=== PATIENT | female | born 1940 | race Caucasian/White ===

== ENCOUNTER → 2017-02-14 | Day surgery (SDC) | payer OTHER, MEDICARE ==
[~2017-02-14] VITALS: Ht 167.6 cm; Wt 55.8 kg
[~2017-02-14] MED LIST: ADVAIR 250-501 EACH INH; ALBUTEROL2.5 MG/0.1 INH; BROVANA15 MCG/2 M INH; CALCIUM 500 +1 EAC5 PO; CALCIUM500 M1; DALIRESP500 MCG PO; DIAZEPAM2 MG PO; LEVOTHYROXIN0.088 MG; LEVOXYL100 MCG PO; LORAZEPAM 0.50.5 MG PO; LOTEMAX5 GM OPHTHALMIC; MUCINEX600 MG PO; PREDNISONE 10 M10 M1; PROLENSA1.6 ML OPHTHALMIC; PROTONIX 20 MG20 M1 PO; PULMICORT0.5 MG/22 INH; SERTRALINE HCL1 GM; SIMVASTATIN80 MG PO; SPIRIVA18 MCG INH; VENTOLIN HFA 1818 GM INH; VITAMIN D2000 UNIT PO; ZOCOR40 MG PO; ZOLOFT 50 MG TA50 M1 PO; ZOLOFT100 MG PO
--- NOTE | ~2017-02-14 | O ---
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 PROCEDURE: Bilateral lower lid ectropion repair with transconjunctival lower lid and cheek lift. SURGEON: Keo Garcia M.D. DELIVERY AGENT: None. ANESTHESIA: MAC. COMPLICATIONS: None. INDICATIONS FOR SURGERY: This pleasant 76-year-old woman presents with bilateral lower lid ectropion with lid retraction, lagophthalmos, and keratopathy. She presents today for a bilateral lower lid ectropion repair, combined with a transconjunctival lower lid and cheek lift. Informed consent was obtained to include but not limited to potential risk for loss of vision, bleeding, infection, failure to improve the problem, and the potential need for further surgery or treatment. DESCRIPTION OF PROCEDURE: The patient was taken to the operating room where 2% Xylocaine with epinephrine mixed with equal parts of 0.75% Marcaine with Wydase was administered transcutaneously and transconjunctivally to each lower lid, lateral canthus, cheek, and infratemporal fossa. The patient was subsequently prepped and draped in the usual sterile fashion. Attention was first turned to the left side. The left lateral canthus was then clamped with a Orozco clamp. A sharp canthotomy and cantholysis was subsequently performed. A tarsal strip was then prepared laterally removing the lash bearing portion of the redundant lid margin and the redundant tarsal plate. Hemostasis was then re-achieved. The transconjunctival incision was made below the inferior border of the tarsal [address] [address] OPERATIVE REPORT Name: OSCAR PRICE Room #: REG [facility] [place]..#: [id number] Admission: 02/14/17 Attend Phys: Keo Garcia MD Discharge: Date of : 36 Report #: [id number]. The dissection was then carried out in the premalar tissues with sharp techniques. Hemostasis was re-achieved. The lower lid and cheek tissues were then re-elevated and suspended with interrupted 5-0 Prolene sutures. Attention was then turned to completion of the ectropion repair. The tarsal strip was secured to the internal portion of the lateral orbital tubercle with 2 interrupted 5-0 Prolene sutures. The subcutaneous structures and the skin were then advanced and closed with interrupted 6-0 plain gut sutures. Attention was then turned to the right side, where the same procedures were performed. The wounds were then cleaned and dressed with erythromycin ophthalmic ointment. The patient was subsequently transported to the recovery area having tolerated the procedure well with a symmetrical procedure is being undertaken. Thank you very much. Supportive dictations follow. By: 1509 1722 Keo Garcia MD /nt
== END | disposition home or self-care (01) ==
LOC: OR 05:19
DX: H02.102 Unspecified ectropion of right lower eyelid (principal); H02.105 Unspecified ectropion of left lower eyelid; H02.535 Eyelid retraction left lower eyelid; H02.532 Eyelid retraction right lower eyelid; H02.205 Unspecified lagophthalmos left lower eyelid; H02.202 Unspecified lagophthalmos right lower eyelid; J44.9 Chronic obstructive pulmonary disease, unspecified; F41.9 Anxiety disorder, unspecified; H18.9 Unspecified disorder of cornea; K21.9 Gastro-esophageal reflux disease without esophagitis; Z90.49 Acquired absence of other specified parts of digestive tract; Z90.710 Acquired absence of both cervix and uterus; Z98.890 Other specified postprocedural states; Z98.41 Cataract extraction status, right eye; Z98.42 Cataract extraction status, left eye; Z87.891 Personal history of nicotine dependence
CPT/HCPCS: 50010; 50101; 50386; 50398; 51636; 56527; 56531; 62110; 62850; 70005

== ENCOUNTER 2017-04-26 10:16 | Inpatient (IN) | payer OTHER, MEDICARE ==
[2017-04-26] VITALS (31 sets, daily range): BP systolic 76–153; BP diastolic 47–74
[~2017-04-26] VITALS: Ht 152.4 cm; Wt 59.0 kg
--- NOTE | ~2017-04-26 | 2DMMODE ---
[place] [address] [facility] [place] [address] 2 D/M-MODE ECHOCARDIOGRAM Name: PRICEOSCAR KATHRYN Room #: 237-P [facility] IN M.R.#: [id number] Admission: 04/26/17 Attend Phys: Edd Ugarte, Discharge: Date of : 36 Date of Service: 04/28/17 1221 Report #: [id number] THIS REPORT FOR: //name// APPROVED REPORT Study performed: 04/28/2017 10:01:35 EXAM: Comprehensive 2D, Doppler, and color-flow Echocardiogram Patient Location: Bedside Room #: 237 Other Information Study Quality: Technically Difficult Indications COPD Pulmonary Hypertension 2D Dimensions RVDd: 39.92 mm LVEF(%): 78.24 (>50%) IVSd: 9.40 (7-11mm) LVOT Diam: 18.06 (18-24mm) LVDd: 36.59 mm PWd: 9.03 (7-11mm) Ascending Ao: 22.86 (22-36mm) LVDs: 19.74 (25-40mm) Aortic Root: 29.87 mm IVC: 24.00 mm Stern's LVEF: 78.24 % Volumes Left Atrial Volume (Systole) Single Plane 4CH: 21.46 mL Single Plane 2CH: 18.97 mL LA ESV Index: 26.00 mL/m2 Aortic Valve AoV Peak Petros.: 1.55 m/s AO Peak Gr.: 9.60 mmHg LVOT Max P.98 mmHg LVOT Max V: 1.12 m/s ONELIA Vmax: 1.84 cm2 Mitral Valve MV Decel. Time: 132.04 ms MV E Max Petros.: 1.25 m/s IVRT: 76.12 ms Pulmonary Valve [facility] [address] [address] 2 D/M-MODE ECHOCARDIOGRAM Name: OSCAR PRICE Room #: [address] [place] [address] IN M.R.#: [id number] Admission: 04/26/17 Attend Phys: Edd Ugarte, Discharge: Date of : 36 Date of Service: 04/28/17 1221 Report #: [id number] PV Peak Petros.: 1.42 m/s PV Peak Gr.: 8.04 mmHg Tricuspid Valve RAP Estimate: 15.00 mmHg Left Ventricle The left ventricle is normal size. There is normal left ventricular wall thickness. Left ventricular systolic function is hyperdynamic. LVEF is >70%. This study is not technically sufficient to allow evaluation of the LV diastolic function due to high heart rate. Right Ventricle Right ventricle is dilated. The right ventricular systolic function is normal. Atria The left atrium size is normal. The right atrium size is normal. Aortic Valve The aortic valve is normal in structure but poorly visualized. No aortic regurgitation is present. There is no aortic valvular stenosis. Mitral Valve The mitral valve is normal in structure. There is no mitral valve regurgitation noted. No evidence of mitral valve stenosis. Tricuspid Valve The tricuspid valve is normal in structure. Trace tricuspid regurgitation. Pulmonic Valve The pulmonary valve is normal in structure. Trace to mild pulmonic regurgitation. Great Vessels The aortic root is normal in size. IVC is dilated and collapses <50% with inspiration. <Conclusion> The left ventricle is normal size. LVEF is >70%. Right ventricle is dilated. The aortic valve is normal in structure but poorly visualized. [facility] [address] [place] [address] 2 D/M-MODE ECHOCARDIOGRAM Name: ALBERTOSCAR KATHRYN Room #: 237-P [facility] IN .R.#: [id number] Admission: 04/26/17 Attend Phys: Edd Ugarte, Discharge: Date of : 36 Date of Service: 04/28/17 1221 Report #: [id number] The mitral valve is normal in structure. The tricuspid valve is normal in structure. Trace tricuspid regurgitation. The pulmonary valve is normal in structure. Trace to mild pulmonic regurgitation. <ELECTRONICALLY SIGNED> By: Cheikh Duncan MD 04/28/17 1221 1221 1221 Cheikh Duncan MD /INF
--- NOTE | ~2017-04-26 | EKG ---
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
--- NOTE | ~2017-04-26 | CNG ---
[facility] [place] [address] CYTO-NONGYN REPORT PROCEDURE Name: OSCAR RAMSEY Room #: 237-P DIS IN M.R.#: [id number] Admission: 04/26/17 Date of : 36 Discharge: 05/01/17 Report #: [id number] Path Case #: [id number] CYTOPATHOLOGY REPORT COLLECTION DATE: 04/29/2017 RECEIVED DATE: 04/29/2017 SUBMITTING PHYS: Dr. Candi Palacio OTHER PHYS: Dr. Gab Ugarte CLINICAL HISTORY: COPD; Excaerbation SPECIMEN(S) RECEIVED: A.Sputum * * * * * * * * * * * * FINAL DIAGNOSIS: A. Sputum: Atypical cells identified. -Occasional clusters of cells with reactive atypia identified amongst alveolar macrophages, rare bronchial epithelial cells and acute and chronic inflammation. PATHOLOGIST: Nerissa Alvarez M.D. REPORT ELECTRONICALLY SIGNED BY: Nerissa Alvarez M.D. DATE/TIME: 05/02/2017 11:08 * * * * * * * * * * * * GROSS PATHOLOGY: A. Sputum: The specimen is submitted unfixed, labeled "Oscar Ramsey". Received by the Cytology Department is two mL of cloudy colorless fluid. One ThinPrep slide was prepared. (mm 04.29.2017) TRAINING PERSONNEL SUPERVISOR(S): ELO Pablo([facility]) INITIAL CPT CODE(S): A; 62681 Professional services performed by [facility] at [facility] [address], [place] [address] Technical services performed by [facility] at [address] [place] [address]., [address], [place] [address]. [facility] [address] [place] [address], [address] [place] [address] [facility] [address] [place] [address] CYTO-NONGYN REPORT PROCEDURE Name: OSCAR RAMSEY Room #: 237-P DIS IN M.R.#: [id number] Admission: 04/26/17 Date of : 36 Discharge: 05/01/17 Report #: [id number] Path Case #: [id number] PHONE: [phone] DIRECTOR: Jeancarlos Gustafson M.D. * * * END OF REPORT * * *
--- NOTE | ~2017-04-26 | HC ---
[facility] [place] [address] CONSULTATION Name: OSCAR PRICE Room #: 237-P [facility] IN M.R.#: [id number] Admission: 04/26/17 Attend Phys: Edd Ugarte MD Discharge: 05/01/17 Date of : 36 Report #: [id number] THIS REPORT FOR: //name// CC: Dr. Castro Ugarte REASON FOR CONSULTATION: Hypercapnic respiratory failure, 35 minutes critical care time. IMPRESSION: 1. Acute respiratory failure likely secondary to exacerbated chronic obstructive pulmonary disease. 2. Right bundle-branch block. 3. Leukocytosis. PLAN: 1. We will check a D-dimer. If this is positive, we will do a CT PE protocol. 2. We will keep sedated and adjust ventilator. 3. Aerosol, antibiotics and corticosteroids. We will check sputum cultures. We will do usual DVT and ulcer prophylaxis. Because of her IODINE allergy, we will do a perfusion lung scan. HISTORY OF PRESENT ILLNESS: A 76-year-old female presented to the ER with respiratory distress and nausea. PAST MEDICAL AND SURGICAL HISTORY: Surgeries include partial thyroidectomy, appendectomy, tubal ligation, hemorrhoidectomy, hysterectomy, cataract surgery. MEDICATIONS: Per chart include Spiriva, Levoxyl, sertraline, simvastatin, Brovana, Pulmicort, Ventolin. ALLERGIES: SULFA, CODEINE AND IODINE. SOCIAL HISTORY: Positive tobacco in the past and ETOH. REVIEW OF SYSTEMS: Unobtainable; however, history of COPD, hemorrhoid, anxiety. PHYSICAL EXAMINATION: VITAL SIGNS: Temperature 96.9, pulse 106, respiratory rate 17, and blood pressure 100/60. EYES: Negative icterus. NECK: Trachea midline. Endotracheal tube in place. LUNGS: Mild wheeze. HEART: tachy. ABDOMEN: Bowel sounds present. [facility] [address] [place] [address] CONSULTATION Name: OSCAR PRICE Room #: 237-P [facility] IN [facility]#: [id number] Admission: 04/26/17 Attend Phys: Edd Ugarte MD Discharge: 05/01/17 Date of : 36 Report #: [id number] EXTREMITIES: No cyanosis or edema. LABORATORY DATA: Initial ABG showed pH 7.21, pCO2 of 90, pO2 of 174 on 8 liters, lactate 0.55. On BiPAP, rate of 14, pressure , PEEP of 6, pH 7.183, pCO2 of 96, pO2 of 171. On ventilator, pH 7.216, pCO2 of 77, pO2 of 136, 40%, rate 14, tidal volume 450, PEEP of 6, peak pressure was 24. DICTATION ENDS HERE. <ELECTRONICALLY SIGNED> By: Candi Palacio MD 05/08/17 0931 1618 0755 Candi Palacio MD /agtito
[2017-04-26 10:31] LABS: ABG SAMPLE TYPE ARTERIAL; BE(vivo) 4.1 mmol/L (-2 to +3); HCO3 35.1 mmol/L (22.0-26.0); LACTATE 0.55 mmol/L (0.5-2.0); O2(CT) 19.4 mL/dL (15.0-23.0); O2Hb 98.1 % (92.0-98.0); PO2 173.8 mmHg (80.0-100.0); sO2 98.8 % (92.0-98.0); tCO2 37.9 mmol/L (24.0-30.0)
[2017-04-26 10:32] LABS: PCO2 89.8 mmHg (35.0-45.0); STICK SITE R.RADIAL
[2017-04-26 10:55] LABS: MCH 30.8 pg (26.0-34.0); MCHC 32.5 g/dL (28.0-37.0); MCV 94.8 fL (80.0-100.0); RBC 4.22 mil/uL (4.20-5.00); RDW 14.3 % (10.5-14.5); WBC 17.4 thou/uL (4.0-11.0)
[2017-04-26 11:00] LABS: CALCIUM 8.7 mg/dL (8.5-10.1); CREATININE 0.7 mg/dL (0.6-1.0); POTASSIUM 4.4 mmol/L (3.5-5.1)
[2017-04-26 11:26] LABS: ABG SAMPLE TYPE ARTERIAL; BE(vivo) 3.7 mmol/L (-2 to +3); HCO3 35.3 mmol/L (22.0-26.0); LACTATE 0.69 mmol/L (0.5-2.0); O2(CT) 19.3 mL/dL (15.0-23.0); O2Hb 97.9 % (92.0-98.0); PCO2 96.1 mmHg (35.0-45.0); PO2 171.6 mmHg (80.0-100.0); pH 7.183 (7.360-7.450); sO2 98.7 % (92.0-98.0); tCO2 38.3 mmol/L (24.0-30.0)
[2017-04-26 11:27] LABS: Pressure Support 6 cm H20; STICK SITE R.BRACHIAL
[2017-04-26 13:58] LABS: ABG SAMPLE TYPE ARTERIAL; BE(vivo) 0.9 mmol/L (-2 to +3); HCO3 30.7 mmol/L (22.0-26.0); LACTATE 1.02 mmol/L (0.5-2.0); O2(CT) 17.8 mL/dL (15.0-23.0); O2Hb 97.6 % (92.0-98.0); PO2 136.4 mmHg (80.0-100.0); sO2 98.1 % (92.0-98.0); tCO2 33.1 mmol/L (24.0-30.0)
[2017-04-26 13:59] LABS: PCO2 77.4 mmHg (35.0-45.0); STICK SITE R.RADIAL; TIDAL VOLUME 450 ml; pH 7.216 (7.360-7.450)
[2017-04-26 16:54] LABS: ALBUMIN 3.4 g/dL (3.4-5.0); DIRECT BILIRUBIN 0.1 mg/dL (<0.1-0.3); TOTAL BILIRUBIN 0.4 mg/dL (<0.1-1.0); TOTAL PROTEIN 5.3 g/dL (6.4-8.2)
[2017-04-26 19:03] LABS: URINE BILIRUBIN NEGATIVE (Negative); URINE BLOOD 1+ (Negative); URINE COLOR YELLOW; URINE GLUCOSE-RANDOM* NEGATIVE (Negative); URINE KETONES NEGATIVE (Negative); URINE LEUKOCYTES-REFLEX NEGATIVE (Negative); URINE PROTEIN (DIPSTICK) TRACE (Negative); URINE SPECIFIC GRAVITY >= 1.030 (1.003-1.035); URINE UROBILINOGEN 0.2 E.U./dl (0.2-1.0)
[2017-04-26 19:14] LABS: SQUAMOUS 0-3 Few /LPF (0-3); URINE RBC 3-10 Few /HPF (0-2); URINE WBC-REFLEX 0-5 Rare /HPF (0-5)
[2017-04-26 19:15] LABS: AMORPHOUS URATES Few /LPF (None Seen); CASTS None Seen /LPF (None Seen)
[2017-04-27] VITALS (34 sets, daily range): BP systolic 88–145; BP diastolic 55–87
[2017-04-27 04:25] LABS: HEMATOCRIT 32.5 % (37.0-47.0); MCH 31.3 pg (26.0-34.0); MCHC 33.6 g/dL (28.0-37.0); MCV 93.3 fL (80.0-100.0); RBC 3.48 mil/uL (4.20-5.00); RDW 14.5 % (10.5-14.5); WBC 8.2 thou/uL (4.0-11.0)
[2017-04-27 04:38] LABS: HEMOGLOBIN 10.9 gm/dL (12.0-15.0)
[2017-04-27 04:40] LABS: ALBUMIN 3.1 g/dL (3.4-5.0); CALCIUM 7.9 mg/dL (8.5-10.1); CREATININE 0.9 mg/dL (0.6-1.0); MANUAL DIFF YES; POTASSIUM 4.3 mmol/L (3.5-5.1); TOTAL BILIRUBIN 0.3 mg/dL (<0.1-1.0); TOTAL PROTEIN 5.3 g/dL (6.4-8.2); TROPONIN-I 0.1 ng/mL (<0.04-0.07)
[2017-04-27 04:58] LABS: ABG SAMPLE TYPE ARTERIAL; BE(vivo) 0.3 mmol/L (-2 to +3); HCO3 26.6 mmol/L (22.0-26.0); LACTATE 3.17 mmol/L (0.5-2.0); O2(CT) 16.6 mL/dL (15.0-23.0); O2Hb 97.7 % (92.0-98.0); PCO2 50.6 mmHg (35.0-45.0); STICK SITE R.BRACHIAL; TIDAL VOLUME 450 ml; pH 7.339 (7.360-7.450); sO2 98.8 % (92.0-98.0); tCO2 28.2 mmol/L (24.0-30.0)
[2017-04-27 05:32] LABS: ABSOLUTE NEUTROPHILS 7.4 thou/uL (1.4-8.2); ANISOCYTOSIS SLIGHT; ATYPICAL LYMPHS 1 %; TOTAL CELL COUNT 100
[2017-04-27 05:38] LABS: PLATELET COUNT 156 thou/uL (150-400)
[2017-04-27 09:42] LABS: ABG SAMPLE TYPE ARTERIAL; BE(vivo) -0.7 mmol/L (-2 to +3); HCO3 27.5 mmol/L (22.0-26.0); O2(CT) 17.3 mL/dL (15.0-23.0); O2Hb 97.6 % (92.0-98.0); PCO2 62.7 mmHg (35.0-45.0); PO2 151.6 mmHg (80.0-100.0); STICK SITE R.RADIAL; sO2 98.6 % (92.0-98.0); tCO2 29.4 mmol/L (24.0-30.0)
[2017-04-27 09:43] LABS: ABG COMMENT CPAP X 35 MIN; Pressure Support 8 cm H20
[2017-04-27 14:41] LABS: ABG SAMPLE TYPE ARTERIAL; BE(vivo) -0.9 mmol/L (-2 to +3); HCO3 26.1 mmol/L (22.0-26.0); LACTATE 1.68 mmol/L (0.5-2.0); O2(CT) 16.4 mL/dL (15.0-23.0); O2Hb 96.6 % (92.0-98.0); PCO2 53.5 mmHg (35.0-45.0); PO2 106.2 mmHg (80.0-100.0); sO2 97.3 % (92.0-98.0); tCO2 27.7 mmol/L (24.0-30.0)
[2017-04-27 14:42] LABS: ABG COMMENT CPAP X 30 MIN; Pressure Support 8 cm H20; STICK SITE R.RADIAL; pH 7.306 (7.360-7.450)
[2017-04-28] VITALS (25 sets, daily range): BP systolic 89–153; BP diastolic 58–78
[2017-04-29] VITALS (22 sets, daily range): BP systolic 101–151; BP diastolic 60–92
[2017-04-29 04:36] LABS: HEMOGLOBIN 11.3 gm/dL (12.0-15.0); MCH 31.6 pg (26.0-34.0); MCHC 33.3 g/dL (28.0-37.0); MCV 94.8 fL (80.0-100.0); RBC 3.58 mil/uL (4.20-5.00); RDW 15.1 % (10.5-14.5); WBC 7.2 thou/uL (4.0-11.0)
[2017-04-29 04:52] LABS: ALBUMIN 3.1 g/dL (3.4-5.0); CALCIUM 8.3 mg/dL (8.5-10.1); CREATININE 0.7 mg/dL (0.6-1.0); POTASSIUM 4.3 mmol/L (3.5-5.1); TOTAL BILIRUBIN 0.2 mg/dL (<0.1-1.0); TOTAL PROTEIN 5.5 g/dL (6.4-8.2)
[2017-04-30] VITALS (17 sets, daily range): BP systolic 103–186; BP diastolic 71–109
[2017-04-30 06:18] LABS: HEMATOCRIT 24.7 % (37.0-47.0); MCHC 34.8 g/dL (28.0-37.0); MCV 94.9 fL (80.0-100.0); RBC 2.6 mil/uL (4.20-5.00); RDW 15.4 % (10.5-14.5); WBC 8.1 thou/uL (4.0-11.0)
[2017-04-30 06:25] LABS: CALCIUM 6.4 mg/dL (8.5-10.1); CREATININE 0.5 mg/dL (0.6-1.0); HEMOGLOBIN 8.6 gm/dL (12.0-15.0); POTASSIUM 3.7 mmol/L (3.5-5.1)
[2017-04-30 09:45] LABS: ABG SAMPLE TYPE ARTERIAL; BE(vivo) 3.1 mmol/L (-2 to +3); LACTATE 0.55 mmol/L (0.5-2.0); O2(CT) 16.6 mL/dL (15.0-23.0); O2Hb 94.8 % (92.0-98.0); PCO2 63.9 mmHg (35.0-45.0); PO2 90.1 mmHg (80.0-100.0); sO2 95.9 % (92.0-98.0)
[2017-04-30 09:46] LABS: Pressure Support 8 cm H20; STICK SITE R.RADIAL; pH 7.304 (7.360-7.450)
[2017-04-30 15:47] LABS: ABG SAMPLE TYPE ARTERIAL; BE(vivo) -1.6 mmol/L (-2 to +3); LACTATE 0.51 mmol/L (0.5-2.0); O2(CT) 16.5 mL/dL (15.0-23.0); O2Hb 93.3 % (92.0-98.0); PCO2 82.9 mmHg (35.0-45.0); pH 7.161 (7.360-7.450); sO2 93.2 % (92.0-98.0); tCO2 31.5 mmol/L (24.0-30.0)
[2017-04-30 15:48] LABS: STICK SITE R.RADIAL
[2017-04-30 19:14] LABS: ABG SAMPLE TYPE ARTERIAL; BE(vivo) 2.9 mmol/L (-2 to +3); HCO3 32.9 mmol/L (22.0-26.0); LACTATE 0.55 mmol/L (0.5-2.0); O2(CT) 16.4 mL/dL (15.0-23.0); O2Hb 93.8 % (92.0-98.0); PO2 79.4 mmHg (80.0-100.0); sO2 92.7 % (92.0-98.0); tCO2 35.4 mmol/L (24.0-30.0)
[2017-04-30 19:15] LABS: PCO2 82.1 mmHg (35.0-45.0); STICK SITE L.RADIAL; pH 7.221 (7.360-7.450)
[2017-04-30 19:16] LABS: Pressure Support 18 cm H20
[2017-05-01] VITALS (18 sets, daily range): BP systolic 100–166; BP diastolic 52–100
[2017-05-01 04:35] LABS: ABG SAMPLE TYPE ARTERIAL; BE(vivo) 0.6 mmol/L (-2 to +3); HCO3 29.6 mmol/L (22.0-26.0); LACTATE 0.76 mmol/L (0.5-2.0); O2(CT) 16.5 mL/dL (15.0-23.0); O2Hb 93.4 % (92.0-98.0); PCO2 70.5 mmHg (35.0-45.0); STICK SITE L.RADIAL; pH 7.241 (7.360-7.450); sO2 92.6 % (92.0-98.0); tCO2 31.8 mmol/L (24.0-30.0)
[2017-05-01 04:36] LABS: Pressure Support 18 cm H20
== END 2017-05-01 19:04 | DRG 207 ==
LOC: ER 10:16 → ICU 12:44 → EROBS 12:44 → ICU 13:23
PROVIDERS: Emergency Medicine; Internal Medicine; Internal Medicine Pulmonary Disease; Nurse Practitioner Family
PROC: 0BH17EZ Insertion of Endotracheal Airway into Trachea, Via Natural or Artificial Opening (ICD-10-PCS; principal; 2017-04-26)
PROC: 5A1955Z Respiratory Ventilation, Greater than 96 Consecutive Hours (ICD-10-PCS; 2017-04-26)
PROC: 5A09357 Assistance with Respiratory Ventilation, Less than 24 Consecutive Hours, Continuous Positive Airway Pressure (ICD-10-PCS; 2017-04-26)
DX: J96.21 Acute and chronic respiratory failure with hypoxia (principal); J44.1 Chronic obstructive pulmonary disease with (acute) exacerbation; J96.22 Acute and chronic respiratory failure with hypercapnia; F41.9 Anxiety disorder, unspecified; I45.10 Unspecified right bundle-branch block; D72.829 Elevated white blood cell count, unspecified; E03.9 Hypothyroidism, unspecified; F32.9 Major depressive disorder, single episode, unspecified; R91.1 Solitary pulmonary nodule; Z66 Do not resuscitate; D64.9 Anemia, unspecified; Z51.5 Encounter for palliative care; Z90.49 Acquired absence of other specified parts of digestive tract; Z90.710 Acquired absence of both cervix and uterus; Z98.42 Cataract extraction status, left eye; Z98.41 Cataract extraction status, right eye; Z88.2 Allergy status to sulfonamides; Z88.6 Allergy status to analgesic agent; Z91.041 Radiographic dye allergy status; Z87.891 Personal history of nicotine dependence; Z79.899 Other long term (current) drug therapy
CPT/HCPCS: 10078